=== PATIENT | male | born 1985 | race Caucasian/White ===

== ENCOUNTER → 2017-06-09 15:59 | Outpatient (CLI) | payer MEDICAID, SELFPAY ==
[2017-06-09 16:08] LABS: Bacteria 0 SEEN /hpf (None Seen); Mucous, Urine 0 SEEN /hpf (<or=2+); Red Blood Cells-Urine 0 SEEN /hpf (0-5); White Blood Cells 0 SEEN /hpf (0-5)
[2017-06-09 18:05] LABS: Color, Urine Yellow (Yellow); Glucose, Dipstick Normal (Normal); Ketone-Dipstick Negative (Negative); Leukocyte Esterase-Dipstick Negative /ul (Negative); Nitrite-Dipstick Negative (Negative); Occult Blood-Urine Negative /ul (Negative); Protein-Dipstick Negative (Negative); Specific Gravity, Urine 1.025 (1.002-1.030); Urine Bilirubin Dipstick Negative (Negative); Urine Clarity Clear (Clear); Urine Urobilinogen Normal (Normal)
[2017-06-09 18:40] LABS: Squamous Epithelial Cells - UA 0-5 SEEN /hpf (0-5)
[2017-06-09 20:09] LABS: Chlamydia Trachomatis by PCR Negative (Negative); Neisserai gonorrhoeae by PCR Negative (Negative); Probe Check PASS; Sample Adequacy Control PASS; Specimen Processing Control PASS
== END ==
PROVIDERS: Family Provider Family Medicine; PCP Family Medicine; Visit Provider Family Medicine
DX: N45.1 Epididymitis (principal); Z86.19 Personal history of other infectious and parasitic diseases
CPT/HCPCS: 81001; 87086; 87491; 87591

== ENCOUNTER → 2017-07-12 15:49 | Outpatient (CLI) | payer MEDICAID, SELFPAY ==
--- NOTE | 2017-07-12 15:52 | US_ITS ---
STUDY: SCROTUM ULTRASOUND REASON FOR EXAM: Male, 31 years old. Bilateral testicular pain and swelling. TECHNIQUE: Ultrasound evaluation of the scrotum was performed with color Doppler and static garcia-scale imaging. COMPARISON: None. FINDINGS: RIGHT TESTICLE INTRATESTICULAR: There is a normal size of the right testicle. The right testicle measures 3.8 x 3.0 x 2.4 cm. There is a homogenous echotexture. There is normal arterial and normal venous vascularity. There is no demonstrated right testicular mass or cyst. EXTRATESTICULAR: The epididymis is normal in size. The epididymis head measures 1.4 x 1.2 x 1.1 cm. There is normal vascularity of the epididymis. There is no demonstrated epididymal cystic structure. There is no demonstrated hydrocele. There is no demonstrated varicocele. There is no demonstrated extratesticular mass or cyst. LEFT TESTICLE INTRATESTICULAR: There is a normal size of the left testicle. The left testicle measures 3.9 x 2.7 x 2.3 cm. There is a homogenous echotexture. There is normal arterial and normal venous vascularity. There is no demonstrated left testicular mass or cyst. EXTRATESTICULAR: The epididymis is normal in size. The epididymis head measures 1.0 x 0.8 x 0.7 cm. There is normal vascularity of the epididymis. There is no demonstrated epididymal cystic structure. There is no demonstrated hydrocele. There is a small varicocele. There is no demonstrated extratesticular mass or cyst. US/Testicular with Arterial Flow IMPRESSION: Normal bilateral testicles. Right epididymal head is slightly larger as compared to the left. No increased vascularity to suggest epididymitis. Small left varicocele. Electronically Signed: Skip Zaldivar MD at 5:12 EDT , Service support ,
== END ==
PROVIDERS: Family Provider Family Medicine; PCP Family Medicine; Visit Provider Family Medicine
DX: N45.1 Epididymitis (principal)
CPT/HCPCS: 76870; 93976

== ENCOUNTER 2018-10-22 16:23 | Emergency (ER) | payer MEDICAID, SELFPAY ==
[2018-10-22 16:24] VITALS: BP 147/75; PULSE 60; RESP 14; TEMP 36.9; O2SAT 99; BMI 27.3
--- NOTE | 2018-10-22 16:36 | ED.VISSUMM ---
- ER Visit Summary Date of Service: 10/22/18 Chief Complaint: Left lower back pain History of Present Illness: The patient is a 33 M who complains of left lower back pain. He has had this pain for years but came in today because it is being unbearable today. The pain is in the left lower part of his back. Radiates down the left leg. Denies any falls or trauma. No specific injury. Pain is worse with ambulation. It does radiate down the posterior left leg. He has tried ibuprofen without any relief. He does have a PCP but has not mentioned this pain to his doctor. Physical Examination: Vital signs are reviewed. Back exam reveals tenderness in the left lumbar paraspinal area. It is tender down into the left buttock. His neurologic exam including reflexes is normal. No skin changes. Test Results: None performed Emergency Department Course and Treatment: Patient likely has a sciatica component to his pain. Treat him with naproxen and prednisone. He will need to follow-up with his PCP Treatment Plan: [] Disposition: Discharge Impression: Sciatica This note was generated with Glowpoint dictation software. It may contain incorrect words, spelling, and punctuation that were not noted in review of the chart prior to signing ED Disposition - Plan for ED Patient: Referrals: Oni Chun MD [Primary Care Provider] -
--- NOTE | 2018-10-22 16:37 | ED.DEP ---
ED Disposition - Plan for ED Patient: Disposition: Home or Assisted Living Instructions: BACK PAIN w/ SCIATICA Prescriptions: Prednisone [Deltasone] 40 mg PO DAILY #8 tab Prescription Printed Naproxen [Naprosyn] 500 mg PO BID PRN #20 tab Prescription Printed Referrals: Oni Chun MD [Primary Care Provider] -
[2018-10-22] MEDS: Naproxen 500 MG Tablet PO (16:46)
[2018-10-22] MEDS: predniSONE 20 MG Tablet 40 MG PO (16:46)
[2018-10-22 16:51] VITALS: RESP 18
== END 2018-10-22 16:53 | disposition home or self-care (01) ==
LOC: ED 16:49
PROVIDERS: Emergency Provider Emergency Medicine; Family Provider Family Medicine; PCP Family Medicine
DX: M54.42 Lumbago with sciatica, left side (principal); Z72.0 Tobacco use
CPT/HCPCS: 99283

== ENCOUNTER → 2018-10-25 14:17 | Outpatient (CLI) | payer MEDICAID, SELFPAY ==
[2018-10-22 16:24] VITALS: BMI 27.3
--- NOTE | 2018-10-25 14:22 | RAD_ITS ---
STUDY: X-RAY - LUMBAR SPINE REASON FOR EXAM: Male, 33 years old. Chronic low back pain TECHNIQUE: 5 view(s) of the lumbar spine were obtained. COMPARISON: None FINDINGS: There is no evidence of fracture or dislocation in the lumbar spine. The vertebral body heights are well-maintained. There are mild degenerative changes at L5/S1 with disc space narrowing. RAD/L/S Spine Min 4 Views IMPRESSION: No fracture or dislocation in the lumbar spine. Mild degenerative changes at L5/S1 with disc space narrowing. Electronically Signed: Jose L Flores, at 15:07 EDT Tel , Service support ,
== END ==
PROVIDERS: Family Provider Family Medicine; PCP Family Medicine; Referring Provider Family Medicine; Visit Provider Family Medicine
DX: M54.5 Low back pain (principal); G89.29 Other chronic pain
CPT/HCPCS: 72110

== ENCOUNTER → 2019-10-02 12:00 | Outpatient (CLI) | payer MEDICAID, SELFPAY ==
--- NOTE | 2019-10-02 12:04 | RAD_ITS ---
STUDY: X-RAY - ABDOMEN/PELVIS REASON FOR EXAM: Male, 33 years old. Abdominal pain TECHNIQUE: AP supine and upright views of the abdomen and pelvis on 4 images. COMPARISON: None. FINDINGS: Normal visualized lung bases. There is a generally unremarkable pattern of gas in nondistended segments of small bowel and colon. There is borderline to mild mural thickening of a gas-filled small bowel loop in the medial right lower quadrant, however, that could raise concern of local enteritis. There is no demonstrated free abdominal air. The visualized liver, spleen and kidneys are grossly normal in size and morphology. There are calcified phleboliths in the pelvis. Normal visualized osseous structures. RAD/Abd Inc Decub and/or Erect IMPRESSION: Possible local enteritis in the medial right lower quadrant. No sign of bowel obstruction. No free gas. Electronically Signed: Jaime Toney MD at 17:00 EDT , Service support ,
[2019-10-02 15:22] LABS: Absolute Lymphocyte Count 2.14 X10^3/uL (0.83-4.51); Absolute Neutrophil Count 3.6 X10^3/uL (2.0-7.7); Basophil# 0.07 X10^3/uL; Eosinophil# 0.28 X10^3/uL; Eosinophils% 4.2 % (0-5); Hematocrit 45.1 % (40-54); Hemoglobin 15.1 g/dL (13.0-16.5); Lymphocyte # 2.14 X10^3/ul (4.0); Mean Corp Hgb Conc 33.5 g/dL (32-36); Mean Corpuscular Hgb 30.4 pg (27.0-32.0); Mean Corpuscular Volume 90.9 fL (80-94); Mean Platelet Vol. 12.5 fl (6.2-12.0); Monocyte# 0.62 X10^3/uL; Monocyte% 9.3 % (0-10); NRBC Flagged by Analyzer 0 % (0-5); Neutrophil # 3.56 X10^3/uL (2.7-7.7); Neutrophil % 53.2 % (47-70); Platelet Count 249 K/mm3 (150-450); RBC Distribution Width CV 12.6 % (11.6-14.6); RBC Distribution Width SD 42.2 fl (35.1-43.9); Red Blood Count 4.96 M/mm3 (4.6-6.2); White Blood Count 6.7 K/mm3 (4.4-11.0)
[2019-10-02 15:23] LABS: Erythrocyte Sedimentation Rate 7 mm/hr (0-15)
[2019-10-02 15:45] LABS: ALB/GLOB Ratio 1.1 RATIO (0.9-2.4); AST(SGOT) 23 U/L (15-37); Alanine Aminotransfer ALT/SGPT 35 U/L (16-61); Albumin, Serum 4.2 g/dL (3.2-5.0); Alkaline Phosphatase 81 U/L (45-117); Amylase 76 U/L (25-115); Anion Gap 6 (5-15); BUN 14 mg/dL (7-18); BUN/Creat Ratio 13.5 RATIO (10-20); Calcium,Total 9.2 mg/dL (8.5-10.1); Chloride 104 mmol/L (98-107); Creatinine, Serum 1.04 mg/dL (0.70-1.30); EST Glomerular Filtration Rate 86 mL/min (>60); Est Glom Filt Rate - Afr Amer 104 mL/min (>60); Globulin 3.9 g/dL (2.2-4.2); Glucose 101 mg/dL (74-106); Lipase 297 U/L (73-393); Protein, Total 8.1 g/dL (6.4-8.2); Sodium Level 137 mmol/L (136-145)
== END ==
PROVIDERS: PCP Family Medicine; Referring Provider Family Medicine; Visit Provider Family Medicine
DX: R10.9 Unspecified abdominal pain (principal)
CPT/HCPCS: 36415; 74019; 80053; 82150; 83690; 85025; 85652

== ENCOUNTER → 2019-10-12 11:26 | Outpatient (CLI) | payer MEDICAID, SELFPAY ==
--- NOTE | 2019-10-12 11:33 | RAD_ITS ---
STUDY: X-RAY - ABDOMEN/PELVIS REASON FOR EXAM: Male, 33 years old. CHRONIC ABDOMINAL PAIN xFEW YEARS, WORSENING OVER LAST FEW WEEKS TECHNIQUE: 5 AP supine and upright views of the abdomen and pelvis. COMPARISON: None. FINDINGS: Normal visualized lung bases. There is an unremarkable bowel gas pattern. There is no demonstrated free abdominal air. The visualized liver, spleen and kidneys are grossly normal in size and morphology. Normal soft tissue structures. Normal visualized osseous structures. IMPRESSION: Normal x-ray examination of the abdomen and pelvis. STUDY: X-RAY - ACUTE ABDOMINAL SERIES REASON FOR EXAM: Male, 33 years old. CHRONIC ABDOMINAL PAIN xFEW YEARS, WORSENING OVER LAST FEW WEEKS TECHNIQUE: 2 frontal views of the chest. 3 Supine, and erect view(s) of the abdomen were obtained. COMPARISON: Abdominal x-ray dated October 02, 2019 FINDINGS: The lungs are clear and expanded. Normal size heart. Normal mediastinum and florentino. Normal visualized pulmonary arteries. Normal visualized aortic arch and descending thoracic aorta. The ascending and transverse colon are filled with stool. The descending colon appears mostly decompressed although a small amount of stool is seen in the sigmoid colon region. Mild gaseous distended small bowel loops with air-fluid levels central abdomen is likely due to ileus or enteritis. The soft tissue structures of the abdomen and pelvis are unremarkable. Normal visualized osseous structures. RAD/Acute Abdomen Inc Chest IMPRESSION: 1. Mild gaseous distended small bowel loops with air-fluid levels central abdomen is likely due to ileus or enteritis 2. The ascending and transverse colon are filled with stool. The descending colon appears mostly decompressed although a small amount of stool is seen in the sigmoid colon region. 3. Normal chest exam. Electronically Signed: Michael Thomas MD at 17:24 EDT , Service support ,
== END ==
PROVIDERS: PCP Family Medicine; Referring Provider Family Medicine; Visit Provider Family Medicine
DX: R10.9 Unspecified abdominal pain (principal)
CPT/HCPCS: 74019; 74022

== ENCOUNTER 2020-01-05 06:45 | Day surgery (SDC) | payer MEDICAID, SELFPAY ==
[2019-12-04 15:04] VITALS: BMI 27.3
[2020-01-05 06:59] VITALS: BP 138/77; PULSE 55; RESP 16; TEMP 36.7; O2SAT 98; BMI 25.0
[2020-01-05] MEDS: Lactated Ringers 1,000 ML 100 ML IV (07:05)
--- NOTE | 2020-01-05 07:11 | HP.PCM_ITS ---
Problem List (1) Change in bowel habit Status: Acute (2) Nausea Status: Acute (3) Abdominal pain Status: Acute Qualifiers: History and Physical Date of Admission: 01/05/20 Intake Visit Reasons: ABDOMINAL PAIN, DYSPESIA Chief Complaint: abd pain, constipation/diarrhea Water Tender Required: No Is patient in pain?: No Allergies hydrocodone bitartrate [From Vicodin] Allergy (Verified 12/04/19 15:03) Hives Medications Naproxen [Naprosyn] 500 mg PO BID PRN #20 tab 10/22/18 [Rx Confirmed 12/04/19] omeprazole 40 mg capsule,delayed release cap PO 12/04/19 [History Confirmed 12/04/19] [facility] Medical History (Updated 12/04/19 @ 15:[address] Manny Callejas MD) Change in bowel habit (Acute) Nausea (Acute) Abdominal pain (Acute) GERD (gastroesophageal reflux disease) (Acute) History of back problems (Acute) Surgical History (Updated 12/04/19 @ 15:00 by Umu Peters) History of tooth extraction (Acute) History of vasectomy (Acute) Family History (Updated 12/04/19 @ 15:02 by Umu Peters) Father Colon cancer Social History (Updated 12/04/19 @ 15:[address] Manny Callejas MD) Smoking Status: Current every day smoker HPI HPI HPI: JANIS TOBIN, is a 34 M who presents to the office today for surgical consultation regarding abdominal pain nausea diarrhea constipation. The patient is referred by his primary care physician Dr Oni Chun written copy my surgical consult recommendations return to him. 34-year-old gentleman. He claims for a couple years he has had problems with postprandial nausea abdominal pain diarrhea cramping. Etiology is not been clear but his symptoms have escalated in nature. On October 02, 2019 at [facility] showed a white count of 6.7 with a hemoglobin 15.1 hematocrit 45.1 platelet count 247,000. BUN was 14 creatinine 1.01. Liver function tests were normal. Amylase lipase normal. He had abdominal x-rays obtained most recently on October 12, 2019. The ascending and transverse colon were filled with stool. The descending colon appeared mostly decompressed. Gas-filled distended small bowel loops possible enteritis. The patient has not noticed any bright red blood per rectum or melena. He had had previous abdominal x-rays on October 02, 2019 showing possible local enteritis in the medial right lower quadrant no signs of obstruction. He has no family history of Crohn's or ulcerative colitis. His father had colon cancer in his early 40s. The patient has not had any previous upper and lower endoscopy. He is not had any history of gallbladder disease. He denies weight loss. He has been a long-term cigarette smoker since age 7 currently he uses a vaping product. When the nausea is severe he will use marijuana HPI HPI HPI: JANIS TOBIN, is a 34 M who presents to the office today for ROS General General: No weight change, appetite, fatigue, colon cancer, breast cancer or weakness HEENT HEENT: No difficulty swallowing, eye injury, eye surgery, swollen glands or hoarseness Endo Endocrine: No thyroid disease, diabetes mellitus, thyroid cancer, Hair loss, heat intolerance or cold intolerance Musc Musculoskeletal: Yes back problems; no arthritis, rheumatoid arthritis, gout or joint pain Cardio Cardiovascular: No murmur, pacemaker, heart disease, atrial fibrillation, high blood pressure, heart attack, heart stent, palpitations, shortness of breat with exertion or chest pain Psych Psychiatric: No depression, anxiety or hearing voices Resp Respiratory: No shortness of breath, No sleep apnea, No cough, No COPD, No asthma, No emphysema, No wheezing Gastro Gastrointestinal: Yes abdominal pain, Yes nausea or vomiting, Yes diarrhea, Yes constipation, No blood in stool, No acid reflux, No hemorrhoids, No ulcers, No gallbladder problem, No black,tarry stools Richy Hematologic: No blood thinners, No blood disorders, No bleeding, No anemia, No blood clots Neuro Neurologic: No weakness Exam Const General: cooperative Nutritional Appearance: overweight Orientation: alert, awake [facility] Head: normal to inspection Eyes General: appearance normal, both eyes and all related structures Chest Chest palpation & inspection: normal inspection of the chest Resp Effort & Inspection: normal respiratory effort Auscultation: clear to auscultation bilaterally Cardio Rate: regular rate Rhythm: regular rhythm Heart Sounds: no murmurs GI Other: Soft, diminished nonspecific bowel sounds, minimal tenderness palpation right mid abdomen, no mass, no rebound, no guarding, rectal exam deferred to time of endoscopy Musc Cervical Spine: normal cervical lordosis Skin General: no rashes or lesions noted Neuro Cognition: normal cognition Extrem General: no calf tenderness Psych Affect: normal affect Assessment & Plan Problems 1. Generalized abdominal pain R10.84 2. Nausea R11.0 3. Change in bowel habit R19.4 Plan Patient's had abdominal x-rays suggesting possible decreased caliber of the descending colon with stool in the ascending and transverse. He has been placed on omeprazole with some improvement in reflux symptoms but failure to resolve his nausea. He has a family history of colon cancer in his father at age less than 50. CBC and complete metabolic profile were normal. Abdominal x-rays questioning possible enteritis but that was on 2 different images one in early October and one in later October. I recommended the patient a esophagogastroduodenoscopy with possible biopsy and colonoscopy with possible biopsy or polypectomy as indicated. I have discussed technique, benefit, risk and alternatives. He has had an opportunity to ask and have questions answered. I anticipate aggressive inspection and biopsying were indicated. I anticipate random colonic biopsies. If that is not remarkable then might pursue gallbladder ultrasound or additional gallbladder evaluation. The patient may have irritable bowel syndrome but need to exclude other etiology. I appreciate the opportunity of assisting with her surgical care He is aware of the Covid-19 pandemic. He is aware that the [facility] is currently reporting a low local incidence. CC: Dr Oni Callejas M.D., F.A.C.S. Coding Level of Care Code 27139 Diagnoses Generalized abdominal pain R10.84 ??Abdominal location: generalized Nausea R11.0 Change in bowel habit R19.4 I have re-examined the patient. There are no clinical changes since date of exam. Procedure Criteria Procedure Type: Elective COVID Risk Discussion: The surgeon/proceduralist and patient have discussed in detail the risk of exposure to and/or potential harm posed by the COVID-19 virus with having a surgery/procedure at this time versus the risk of delaying the surgery/procedure. It is not possible to know either the risk of delaying the surgery or procedure or chance of getting an infection with perfect accuracy, but a joint decision was made between the patient and the surgeon/proceduralist to proceed at this time with the scheduled surgery/procedure as indicated on the consent form.
--- NOTE | 2020-01-05 07:30 | IMM_PTH ---
PATIENT: JANIS TOBIN LOC: [facility] U#:[id number] AGE/SX: 34/M ROOM: RE01/05/[address]: Dr. Manny Callejas MD : 1985 BED: DIS: 01/05/2020 SPEC #: [id number] RECD: 01/05/20 13:20 STATUS: CECI REColleen #: [id number] PUJA: 01/05/20 07:[address]: Manny Callejas DEPT: IMMUNOHISTOCHEMISTRY RECD BY: Tania Fowler ENTERED: 01/05/20 13:20 SP TYPE: IMMUNO OTHR DR: Dr. Oni Chun MD Tissues: B - Stomach, NOS Procedures: H Pylori (initial) PHYSICIAN & INSTITUTION [place] [address] SPECIMEN INFORMATION: Tissue Source: B - Antrum biopsy Clinical Info: Abdominal pain, change in bowel habits, nausea Specimen Number: [id number] CPT code: 21603 METHODOLOGY: Deparaffinized sections of prefer/formalin-fixed tissue or PAP/DQ stained slides are incubated with monoclonal/polyclonal antibodies/oligonucleotide probes. Localization is made via biotin free immunoperoxidase method. Appropriate controls are performed and reacted as expected. Results on target cell population are indicated in the following table: RESULTS: ANTIBODY / CLONE RESULT Block B H Pylori (polyclonal) negative These tests were developed and their performance characteristics determined by [facility]. They may not have been cleared or approved by the U.S. Food and Drug Administration. The FDA has determined that such clearance or approval is not necessary. INTERPRETATION: B. Antrum biopsy: Negative for Helicobacter pylori organisms. SJ:nicolette 01/09/20
--- NOTE | 2020-01-05 07:30 | EGD_PTH ---
PATIENT: JANIS TOBIN LOC: [facility] U#:[id number] AGE/SX: 34/M ROOM: RE01/05/[address]: Dr. Manny Callejas MD : 1985 BED: DIS: 01/05/2020 SPEC #: [id number] RECD: 01/05/20 12:05 STATUS: CECI BHAVANA #: [id number] PUJA: 01/05/20 07:[address]: Manny Callejas DEPT: SURGICAL PATHOLOGY RECD BY: Devaughn Flowers ENTERED: 01/05/20 13:06 SP TYPE: EGD BIOPSY OT DR: Dr. Oni Chun MD Tissues: A - Duodenum, NOS B - Gastric mucous membrane C - Esophageal mucous membrane D - Esophageal mucous membrane E - COLON BIOPSY Procedures: Surgery Specimen Level IV HEADER OPERATION: Colonoscopy, EGD ([facility]) PRE-OP DIAGNOSIS: Abdominal pain, change in bowel habits, nausea TISSUE SUBMITTED: A - Duodenum biopsy, B - Antrum biopsy for histo and H. pylori, C - Distal esophagus biopsy, D - Mid esophagus biopsy, E - Random colonic biopsy MICROSCOPIC DIAGNOSIS A. Duodenum, biopsy: Fragments of duodenal mucosa with Cody gland hyperplasia. B. Antrum, biopsy: Mild gastritis. See microscopic description and comment. C. Distal esophagus, biopsy: Fragments of squamous epithelium with mild chronic inflammation. D. Mid esophagus, biopsy: A fragments of squamous epithelium, no pathologic diagnosis. E. Colon, random biopsy: Fragments of colonic mucosa, no pathologic diagnosis. SJ:nicolette 01/09/20 COMMENT B. The results of immunohistochemistry for Helicobacter pylori will be reported separately ([id number]). MICROSCOPIC DESCRIPTION Slides are reviewed. B. The specimen shows fragments of gastric mucosa with chronic inflammatory cell infiltrates in the lamina propria consisting of lymphocytes and plasma cells, consistent with mild chronic gastritis. GROSS DESCRIPTION A - Received in fixative is one container labeled with the patient's name and designated duodenum biopsy. The specimen consists of two irregular fragments of light caldera soft tissue that in aggregate measure 0.8 x 0.4 x 0.1 cm. The specimen is totally submitted in one cassette. B - Received in fixative is one container labeled with the patient's name and designated antrum biopsy. The specimen consists of one irregular fragment of light caldera soft tissue that measures 0.3 x 0.3 x 0.1 cm. The specimen is totally submitted in one cassette. C - Received in fixative is one container labeled with the patient's name and designated distal esophagus biopsy. The specimen consists of multiple irregular fragments of light caldera soft tissue that in aggregate measure 1 x 0.5 x 0.1 cm. The specimen is totally submitted in one cassette. D - Received in fixative is one container labeled with the patient's name and designated mid esophagus biopsy. The specimen consists of one irregular fragment of light caldera soft tissue that measures 0.3 x 0.2 x 0.1 cm. The specimen is totally submitted in one cassette. E - Received in fixative is one container labeled with the patient's name and designated random colonic biopsy. The specimen consists of multiple irregular fragments of light caldera soft tissue that in aggregate measure 1.5 x 1 x 0.1 cm. The specimen is totally submitted in one cassette. / SJ:rg 01/05/20 TC:3 CPT: 89584 x5
[2020-01-05 08:15] VITALS: BP 104/66; BP 138/77; PULSE 47; RESP 18; TEMP 36.2; O2SAT 99
--- NOTE | 2020-01-05 08:18 | OP.CCLET_ITS ---
01/05/2020 Oni Chun [address] [place] [address] Re : Upper GI endoscopy procedure for Chris Mccann Dear Dr. Chun This procedure was performed on Sunday, January 05, 2020. My impressions and recommendations are as follows: Impressions : - LA Grade A reflux esophagitis. Biopsied. - Small hiatal hernia. - Z-line variable, 42 cm from the incisors. - Erythematous mucosa in the antrum. Biopsied. - Normal mid esophagus. Biopsied. - Normal examined duodenum. Biopsied. Recommendations : - Discharge patient to home. - Resume previous diet. - Continue present medications. - Telephone my office for pathology results in 1 week. None of these findings correlate with significant abdominal pain Might consider further outpt workup with GB U/S or HIDA My findings are described in the full procedure note, which is enclosed. If I can be of further assistance, please feel free to contact me at Doctor phone number(s): Work: . Sincerely, Manny Callejas MD 01/05/2020 8:18:11 AM This report has been signed electronically.
--- NOTE | 2020-01-05 08:18 | OP.EGD_ITS ---
Patient Name: Chris Mccann Procedure Date: 01/05/2020 7:46 AM Date of : 1985 Age: 34 Procedure: Upper GI endoscopy Indications: Epigastric abdominal pain Providers: Manny Callejas MD Referring MD: Oni Chun Medicines: See the Anesthesia note for documentation of the administered medications Complications: No immediate complications. Procedure: Pre-Anesthesia Assessment: - Prior to the procedure, a History and Physical was performed, and patient medications and allergies were reviewed. The patient's tolerance of previous anesthesia was also reviewed. The risks and benefits of the procedure and the sedation options and risks were discussed with the patient. All questions were answered, and informed consent was obtained. Prior Anticoagulants: The patient has taken no previous anticoagulant or antiplatelet agents. ASA Grade Assessment: I - A normal, healthy patient. After reviewing the risks and benefits, the patient was deemed in satisfactory condition to undergo the procedure. After obtaining informed consent, the endoscope was passed under direct vision. Throughout the procedure, the patient's blood pressure, pulse, and oxygen saturations were monitored continuously. The Endoscope was introduced through the mouth, and advanced to the second part of duodenum. The upper GI endoscopy was accomplished without difficulty. The patient tolerated the procedure well. Scope In: 7:56:12 AM Scope Out: 8:02:15 AM Total Procedure Duration Time 0 hours 6 minutes 3 seconds Findings: LA Grade A (one or more mucosal breaks less than 5 mm, not extending between tops of 2 mucosal folds) esophagitis with no bleeding was found 42 cm from the incisors. Biopsies were taken with a cold forceps for histology. A small hiatal hernia was present. The Z-line was variable and was found 42 cm from the incisors. Diffuse mildly erythematous mucosa without bleeding was found in the gastric antrum. Biopsies were taken with a cold forceps for histology. The mid esophagus was normal. Biopsies were taken with a cold forceps for histology. The examined duodenum was normal. Biopsies were taken with a cold forceps for histology. Impression: - LA Grade A reflux esophagitis. Biopsied. - Small hiatal hernia. - Z-line variable, 42 cm from the incisors. - Erythematous mucosa in the antrum. Biopsied. - Normal mid esophagus. Biopsied. - Normal examined duodenum. Biopsied. Recommendation: - Discharge patient to home. - Resume previous diet. - Continue present medications. - Telephone my office for pathology results in 1 week. None of these findings correlate with significant abdominal pain Might consider further outpt workup with GB U/S or HIDA Procedure Code(s): --- Professional --- 65568, Esophagogastroduodenoscopy, flexible, transoral; with biopsy, single or multiple Diagnosis Code(s): --- Professional --- K21.0, Gastro-esophageal reflux disease with esophagitis K44.9, Diaphragmatic hernia without obstruction or gangrene K22.8, Other specified diseases of esophagus K31.89, Other diseases of stomach and duodenum R10.13, Epigastric pain CPT copyright 2017 [employer]. All rights reserved. The codes documented in this report are preliminary and upon cottage attendant review may be revised to meet current compliance requirements. Manny Callejas MD 01/05/2020 8:18:11 AM This report has been signed electronically. Number of Addenda: 0 Note Initiated On: 01/05/2020 7:46 AM
[2020-01-05 08:20] VITALS: BP 122/57; BP 138/77; PULSE 57; RESP 18; O2SAT 99
--- NOTE | 2020-01-05 08:21 | OP.COLON_ITS ---
Patient Name: Chris Mccann Procedure Date: 01/05/2020 8:02 AM Date of : 1985 Age: 34 Procedure: Colonoscopy Indications: Generalized abdominal pain Providers: Manny Callejas MD Referring MD: Oni Chun Medicines: See the Anesthesia note for documentation of the administered medications Patient Profile: Last Colonoscopy: none. The patient's first colonoscopy is today. Complications: No immediate complications. Procedure: Pre-Anesthesia Assessment: - Prior to the procedure, a History and Physical was performed, and patient medications and allergies were reviewed. The patient's tolerance of previous anesthesia was also reviewed. The risks and benefits of the procedure and the sedation options and risks were discussed with the patient. All questions were answered, and informed consent was obtained. Prior Anticoagulants: The patient has taken no previous anticoagulant or antiplatelet agents. ASA Grade Assessment: I - A normal, healthy patient. After reviewing the risks and benefits, the patient was deemed in satisfactory condition to undergo the procedure. After I obtained informed consent, the scope was passed under direct vision. Throughout the procedure, the patient's blood pressure, pulse, and oxygen saturations were monitored continuously. The Colonoscope was introduced through the anus and advanced to the cecum, identified by appendiceal orifice and ileocecal valve. The colonoscopy was performed without difficulty. The patient tolerated the procedure well. The quality of the bowel preparation was good. The ileocecal valve and the appendiceal orifice were photographed. Scope In: 8:04:02 AM Scope Withdrawal Time 0 hours 6 minutes 24 seconds Scope Out: 8:12:55 AM Total Procedure Duration Time 0 hours 8 minutes 53 seconds Findings: The perianal and digital rectal examinations were normal. The colon (entire examined portion) appeared normal. Biopsies for histology were taken with a cold forceps from the entire colon for evaluation of microscopic colitis. Impression: - The entire examined colon is normal. Biopsied. Recommendation: - Discharge patient to home. - Resume previous diet. - Continue present medications. - Telephone my office for pathology results in 1 week. - Repeat colonoscopy at age 48 for screening purposes. Procedure Code(s): --- Professional --- 35754, Colonoscopy, flexible; with biopsy, single or multiple Diagnosis Code(s): --- Professional --- R10.84, Generalized abdominal pain CPT copyright 2017 [employer]. All rights reserved. The codes documented in this report are preliminary and upon personal security specialist review may be revised to meet current compliance requirements. Manny Callejas MD 01/05/2020 8:21:27 AM This report has been signed electronically. Number of Addenda: 0 Note Initiated On: 01/05/2020 8:02 AM
--- NOTE | 2020-01-05 08:21 | OP.CCLET_ITS ---
01/05/2020 Oni Chun [address] [place] [address] Re : Colonoscopy procedure for Chris Mccann Dear Dr. Chun This procedure was performed on Sunday, January 05, 2020. My impressions and recommendations are as follows: Impressions : - The entire examined colon is normal. Biopsied. Recommendations : - Discharge patient to home. - Resume previous diet. - Continue present medications. - Telephone my office for pathology results in 1 week. - Repeat colonoscopy at age 48 for screening purposes. My findings are described in the full procedure note, which is enclosed. If I can be of further assistance, please feel free to contact me at Doctor phone number(s): Work: . Sincerely, Manny Callejas MD 01/05/2020 8:21:27 AM This report has been signed electronically.
[2020-01-05 08:25] VITALS: BP 116/68; BP 138/77; PULSE 56; RESP 18; O2SAT 99
[2020-01-05 08:30] VITALS: BP 122/83; BP 134/85; BP 138/77; PULSE 56; PULSE 58; RESP 16; RESP 18; TEMP 36.1; O2SAT 98; O2SAT 99
[2020-01-05 09:10] VITALS: BP 138/77
== END 2020-01-05 09:10 | disposition home or self-care (01) ==
LOC: EN 06:45 → AC 06:46
PROVIDERS: Anesthesiology; PCP Family Medicine; Referring Provider Family Medicine; Visit Provider Surgery
PROC: 0DJD8ZZ Inspection of Lower Intestinal Tract, Via Natural or Artificial Opening Endoscopic (ICD-10-PCS; CPT 45378; principal; 2020-01-05 07:25)
DX: K21.0 Gastro-esophageal reflux disease with esophagitis (principal); K29.70 Gastritis, unspecified, without bleeding; K44.9 Diaphragmatic hernia without obstruction or gangrene; R10.84 Generalized abdominal pain; R10.13 Epigastric pain; R19.4 Change in bowel habit; R11.0 Nausea; E66.3 Overweight; Z68.25 Body mass index [BMI] 25.0-25.9, adult; F17.290 Nicotine dependence, other tobacco product, uncomplicated; Z79.1 Long term (current) use of non-steroidal anti-inflammatories (NSAID); Z11.59 Encounter for screening for other viral diseases; Z80.0 Family history of malignant neoplasm of digestive organs
CPT/HCPCS: 43239; 45380; 87635; 88305; 88342; 94799; J7120; J2405; U0003

== ENCOUNTER → 2020-01-24 07:52 | Outpatient (CLI) | payer MEDICAID, SELFPAY ==
[2020-01-05 06:59] VITALS: BMI 25.0
--- NOTE | 2020-01-24 07:52 | US_ITS ---
STUDY: ABDOMINAL ULTRASOUND - RIGHT UPPER QUADRANT REASON FOR VISIT: Male, 34 years old ABD Pain TECHNIQUE: Ultrasound evaluation of the right upper quadrant was performed with real-time and static garcia-scale imaging. TECHNICAL QUALITY: Adequate. COMPARISON: None. FINDINGS: Liver: The liver measures 17 cm. There is normal echogenicity of the liver. The bile ducts are within normal limits. There is hepatic color flow. The direction of portal flow is hepatopetal. There is no demonstrated mass lesion. Gallbladder: Normal distended gallbladder. The gallbladder wall measures 3.0 mm. There is a negative sonographic Espinosa''s sign. There is no pericholecystic fluid. There are no gallstones. Common Bile Duct (C.B.D.): The common bile duct measures 3.0 mm. Pancreas: Normal size of the head, body and tail of the pancreas. There is normal echogenicity of the pancreas. There is no demonstrated pancreatic mass or cyst. Right Kidney: Normal size of the right kidney. The right kidney measures 12 cm x 5.4 cm x 4.9 cm. Normal renal cortex. The right cortex measures 1.6 cm. There is no demonstrated renal mass or cyst. There is no right hydronephrosis. US/Gallbladder IMPRESSION: Normal right upper quadrant ultrasound examination. Electronically Signed: Дмитрий Mendoza, at 11:14 EDT , Service support ,
== END ==
PROVIDERS: PCP Family Medicine; Referring Provider Surgery; Visit Provider Surgery
DX: R10.9 Unspecified abdominal pain (principal); R11.0 Nausea
CPT/HCPCS: 76705

== ENCOUNTER → 2020-12-09 13:00 | Outpatient (CLI) | payer MEDICAID, SELFPAY ==
--- NOTE | 2020-12-09 13:04 | RAD_ITS ---
STUDY: X-RAY - LUMBAR SPINE REASON FOR EXAM: Male, 35 years old. Lumbar radiculopathy. TECHNIQUE: 5 view(s) of the lumbar spine were obtained. COMPARISON: 10/25/2018. FINDINGS: Normal lumbar lordosis. There is no substantial scoliosis. There is a normal alignment of the vertebrae. Normal vertebral bodies and endplates. Diffuse facet sclerosis. Intervertebral disc space narrowing at L5-S1 with small osteophytes and endplate sclerosis, relatively unchanged from prior study. The soft tissue structures are unremarkable. RAD/L/S Spine Min 4 Views IMPRESSION: Mild lumbar spondylosis most marked at L5-S1, as described. No acute abnormality. Electronically Signed: Sebastian Boland MD at 9:21 EDT , Service support ,
== END ==
PROVIDERS: PCP Family Medicine; Referring Provider Chiropractor; Visit Provider Chiropractor
DX: M47.26 Other spondylosis with radiculopathy, lumbar region (principal)
CPT/HCPCS: 72110

== ENCOUNTER 2021-02-12 16:00 | Outpatient (RCR) | payer MEDICAID, SELFPAY ==
--- NOTE | 2020-12-30 18:02 | HP.PTEVAL ---
Patient's Visit Information JANIS TOBIN is a 35 year old M referred to Physical Therapy by Dr. Rk Antoine DC with a diagnosis of LUMBAR RADICULOAPTHY. Date of Evaluation: 12/30/20 Physical Therapist: Fran Thomas, PT, Cert MDT, OCS - Visit Plan Frequency: 2x /Week Duration: 4 Weeks Plan: PT INTERVENTIONS JAY EX'S ,PROGESS TO DLS LE FLEXABILIY ,ACTIVITY MODIFICATION,POSTURAL EX'S AND MODALTIES PRN - Subjective This 35 y/o male presents to physical therapy with lumbar radiculopathy. Patient has had lumbar radiculopathy for ~ 2months . Patient inquired lumbar pain by tubing in river felt pinch. Seen chiropractor with manipulation which didn't help. Patient pain located left LS region lateral hamstring to ankle. Patient has sciatic pain in past ~ months lifting. Aggravating factors sitting, driving ,bending ,lifting and walking/standing. Coughing /sneezing-. Aleve alleviates pain. Bowel/bladder -. C/O paresthesia/tingling -. Pain affects sleeping . Patient pain affects job demands/QOL and function. No prior PT in past. SOCIAL: . VOCATION: WORKS - Pain Left Back Pain Intensity (Out of 10): 4 Pain Intensity Range: 10 Left Lower Extremity Pain Intensity (Out of 10): 4 Pain Intensity Range: 10 - Objective POSTURE: mild forward posture. GAIT: reciprocal pattern left antalgic gait. PALAPTION: tender LS. NEURO : c/o paresthesia/tingling, reflexes L3-4,L4-5,L5-S1 1/3. MMT: quads/hams 4-/5 left ,right 4/5,hip flexion 4/5,ankle 4/5. LUMBAR ROM: flexion mod pain left lower leg, extension WNL ,side glides min loss. SYMMTRIES: align - Special Tests L/S Slump test left side: Positive L/S Slump test right side: Negative L/S Left Straight Leg Raise: Positive L/S Right Straight Leg Raise: Negative Lumbar Standing: Flexion - Mechanical Response: No effect Lumbar Standing: Flexion - Symptoms During Testing: Increases Lumbar Standing: Flexion - Symptoms After Testing: Worse Lumbar Standing: Extension - Mechanical Response: No effect Lumbar Standing: Extension - Symptoms During Testing: Decreases Lumbar Standing: Extension - Symptoms After Testing: Better Lumbar Standing: Right Side Glides - Mechanical Response: No effect Lumbar Standing: Right Side [place] - Symptoms During Testing: No effect Lumbar Standing: Right Side [place] - Symptoms After Testing: No effect Lumbar Standing: Left Side [place] - Mechanical Response: No effect Lumbar Standing: Left Side [place] - Symptoms During Testing: No effect Lumbar Standing: Left Side [place] - Symptoms After Testing: No effect Lumbar Lying: Flexion - Mechanical Response: No effect Lumbar Lying: Flexion - Symptoms During Testing: Increases Lumbar Lying: Flexion - Symptoms After Testing: Worse Lumbar Lying: Extension - Mechanical Response: No effect Lumbar Lying: Extension - Symptoms During Testing: Decreases Lumbar Lying: Extension - Symptoms After Testing: Better - Balance/Special Test Scores Oswestry Low Back Score: 21 - Goals Goal 1:: I with HEP Goal Time Frame: 4-6 Weeks Goal 2:: Improve posture/body mechanics for ADL's Goal Time Frame: 4-6 Weeks Goal 3:: Patient to decrease pain by 60 % or > to improve function QOL. Goal Time Frame: 4-6 Weeks Goal 4:: Patient to improve lumbar ROM for function of recovery. Goal Time Frame: 4-6 Weeks Goal 5:: Patient increase strength Left LLE 4/5 and resolve ANR by 50% or > to improve QOL Goal Time Frame: 4-6 Weeks - Rehabilitation Potential Physical Therapy Diagnosis: This patient has left lumbar radiculopathy with possible derangement below knee with possible disc -HNP with + SLR ,/ANR ,pain with flexion ,better with extension ,worse with positioning thus benefit from skilled PT to address these deficits Rehabilitation Potential: Good - Anticipated Interventions Patient/Client Instruction: Educate patient on: Condition, Plan of Care For the Purpose of:: To decrease pain, To increase ROM, To improve muscle performance and motor function, To improve ability to perform ADL's, To increase tolerance to activity/condition/position, To improve performance and independence with ADL's, To improve ability of physical actions for home/community/work/leisure, To improve health of tissue, To decrease soft tissue restriction, To increase flexibility/ROM, To reduce risk of recurrence Therapeutic Exercise to Include: Strength training, Body mechanics, Postural training, Flexibilty training, Dynamic Lumbar Stabilization, Jay Exercises For the Purpose of:: To decrease pain, To increase ROM, To improve muscle performance and motor function, To improve ability to perform ADL's, To increase tolerance to activity/condition/position, To improve ability of physical actions for home/community/work/leisure, To improve health of tissue, To decrease soft tissue restriction, To increase flexibility/ROM, To reduce risk of recurrence, To improve ability to perform tasks related to life management TENS: Yes IF ES: Yes Cryotherapy (ice pack, ice massage): Yes Thermo therapy (hot pack): Yes For the Purpose of:: To decrease pain, To increase ROM, To improve muscle performance and motor function, To improve ability to perform ADL's, To increase tolerance to activity/condition/position, To improve ability of physical actions for home/community/work/leisure, To improve health of tissue, To decrease soft tissue restriction, To increase flexibility/ROM, To reduce risk of recurrence, To improve health and function Thank you for the opportunity to evaluate your patient. For Medicare and Medicare HMO plans, please review the plan of care and approve it. It will need to be FAXED BACK to us at [phone] for Medicare purposes. For Medicare only, by signing this I certify the plan of care. Please let me know if there are questions or concerns regarding this plan of care. Physician Signature: Date:
--- NOTE | 2021-02-26 09:24 | HP.PTDCSUM ---
It has been my pleasure to treat JANIS TOBIN referred by Dr. Rk Antoine, JONEL, with the diagnosis of LUMBAR RADICULOAPTHY for a total of 8 visit(s). Discharge Date: 02/26/21 Please see the following information for a summary of their discharge status. Subjective: Feeling alot better ,exercises seem to help. But conts to have intermtant leg symptoms Left Back Pain Intensity (Out of 10): 4 Left Lower Extremity Pain Intensity (Out of 10): 4 % Improvement: 50 Objective/Function: Pt CYNTHIA TX WELL WITH JAY AND DLS WITH NO INCREASE IN SYMPTOMS Goal 1:: I with HEP Goal Progress: Goal Met Goal 2:: Improve posture/body mechanics for ADL's Goal Progress: Progressing Goal 3:: Patient to decrease pain by 60 % or > to improve function QOL. Goal Progress: Progressing Goal 4:: Patient to improve lumbar ROM for function of recovery. Goal Progress: Progressing Goal 5:: Patient increase strength Left LLE 4/5 and resolve ANR by 50% or > to improve QOL Goal Progress: Progressing Plan: PT INTERVENTIONS JAY EX'S, PROGESS TO DLS LE FLEXABILIY, ACTIVITY MODIFICATION, POSTURAL EX'S AND MODALTIES PRN Discharge Comments: HEP AND RTD AND MRI If there are questions or concerns regarding this patient's physical therapy, please feel free to call me at [phone]. Thank you for the referral of this patient. Sincerely, Fran Thomas, PT, Cert MDT, OCS Balance/Gait/Functional tests - Balance/Special Test Scores Oswestry Low Back Score: 10
--- NOTE | 2021-02-26 09:32 | HP.PTDCSUM ---
It has been my pleasure to treat JANIS TOBIN referred by Dr. Rk Antoine DC, with the diagnosis of LUMBAR RADICULOAPTHY for a total of 8 visit(s). Discharge Date: 02/26/21 Please see the following information for a summary of their discharge status. Subjective: Feeling alot better ,exercises seem to help. But conts to have intermtant leg symptoms Left Back Pain Intensity (Out of 10): 4 Left Lower Extremity Pain Intensity (Out of 10): 4 % Improvement: 50 Objective/Function: POSTURE: WFL. GAIT: reciprocal pattern decrease stance time LLE. MMT: quads/hams 4-/5. LUMBAR ROM: flexion mod loss pain increases leg symptoms ,extension/REIL decrease leg symptoms better. NEURO: c/o paresthesia LEFT LEG, myotome weakness. + SLR ,ANR Goal 1:: I with HEP Goal Progress: Goal Met Goal 2:: Improve posture/body mechanics for ADL's Goal Progress: Progressing Goal 3:: Patient to decrease pain by 60 % or > to improve function QOL. Goal Progress: Progressing Goal 4:: Patient to improve lumbar ROM for function of recovery. Goal Progress: Progressing Goal 5:: Patient increase strength Left LLE 4/5 and resolve ANR by 50% or > to improve QOL Goal Progress: Progressing Plan: D/C RTD. RECOMMEND MRI Discharge Comments: HEP AND RTD AND MRI If there are questions or concerns regarding this patient's physical therapy, please feel free to call me at [phone]. Thank you for the referral of this patient. Sincerely, Fran Thomas, PT, Cert MDT, OCS Balance/Gait/Functional tests - Balance/Special Test Scores Oswestry Low Back Score: 10
== END 2021-02-12 19:00 | disposition home or self-care (01) ==
LOC: PT 16:00
PROVIDERS: PCP Family Medicine; Referring Provider Chiropractor; Visit Provider Chiropractor
DX: M54.16 Radiculopathy, lumbar region (principal)
CPT/HCPCS: 97014; 97110; 97161; G0283

== ENCOUNTER → 2021-03-20 15:46 | Outpatient (CLI) | payer MEDICAID, SELFPAY ==
--- NOTE | 2021-03-20 15:55 | MRI_ITS ---
STUDY: MRI LUMBAR SPINE WITHOUT CONTRAST REASON FOR EXAM: Male, 35 years old. RADICULOPATHY, lbp , left leg pain TECHNIQUE: Standardized fat and water weighted pulse sequences were obtained in the sagittal and axial planes. COMPARISON: X-ray 12/09/2020 FINDINGS: T12-L1: Normal endplates. Normal disc height, hydration and morphology. Normal bilateral facet joints. Normal central canal and bilateral lateral recesses. Normal bilateral intervertebral neural foramina. Normal lumbar lordosis. There is no substantial scoliosis. Normal conus medullaris that terminates at the L1. L1-2: Normal endplates. Normal disc height, hydration and morphology. Normal bilateral facet joints. Normal central canal and bilateral lateral recesses. Normal bilateral intervertebral neural foramina. L2-3: Normal endplates. Normal disc height, hydration and morphology. Normal bilateral facet joints. Normal central canal and bilateral lateral recesses. Normal bilateral intervertebral neural foramina. L3-4: Normal endplates. Normal disc height, hydration and morphology. Normal bilateral facet joints. Normal central canal and bilateral lateral recesses. Normal bilateral intervertebral neural foramina. L4-5: Moderate broad disc osteophyte complex asymmetric to the left produces moderate spinal stenosis with moderate right lateral recess stenosis with abutment of the right L5 nerve root, severe left lateral recess stenosis with effacement of the left L5 and S1 nerve roots and mild bilateral neural foraminal stenosis. L5-S1: Mild bilateral facet hypertrophy. Moderate broad disc osteophyte complex produces moderate spinal stenosis with moderate bilateral lateral recess stenosis with abutment of the S1 nerve roots bilaterally and moderate bilateral neural foraminal stenosis with abutment of the L5 nerve roots bilaterally. Normal visualized sacral ala. Normal visualized paraspinous soft tissue structures. MRI/Spine Lumbar (Routine) IMPRESSION: Multilevel degenerative changes, as described above. Electronically Signed: Benson Eng MD at 17:20 EST Tel , Service support ,
== END ==
PROVIDERS: PCP Family Medicine; Visit Provider Chiropractor
DX: M54.16 Radiculopathy, lumbar region (principal)
CPT/HCPCS: 72148

== ENCOUNTER 2024-01-07 08:25 | Day surgery (SDC) | payer OTHER, SELFPAY ==
[2024-01-07] VITALS (7 sets, daily range): BP systolic 99–122; BP diastolic 62–80; PULSE 60–65; RESP 14–16; TEMP 36.6–36.8; O2SAT 65–97; BMI 24.7
--- NOTE | 2024-01-07 09:11 | PCM.PRE.AN2 ---
ASA Classification* ASA Classification ASA Classification: 2 Assessment & Plan Anesthesia* Anesthesia Assessment Anesthesia Assessment: Discussed sedation and/or anesthesia options, risks, benefits, and alternatives with patient/parents/legal guardian/POA. Questions invited. The patient/parents/legal guardian/POA seems to understand and agrees to proceed with anesthesia plan. Reviewed the physical assessment, medical history, allergy history and patient home medications list prior to surgery/procedure/anesthetic and documented any changes. Performed airway and anesthesia risk assessments. Anesthesia Type Anesthesia Type: MAC History Source History Obtained from:: Patient and Chart Anesthesia Focused Assessment* Temperature: 98.3 F Pulse Rate: 60 Blood Pressure: 122/80 Respiratory Rate: 16 Pulse Ox: 97 Oxygen Delivery Method: Room Air Airway Assessment Mouth opens: >3 cm Mallampati Score: I Teeth Condition: Full (Patient has full dentures) Neck Range of motion (ROM): Full ROM Focused Labs Anesthesia Preop lab: CBC WBC 6.7 K/mm3 (4.4-11.0) 10/02/19 12:05 RBC 4.96 M/mm3 (4.6-6.2) 10/02/19 12:05 Hgb 15.1 g/dL (13.0-16.5) 10/02/19 12:05 Hct 45.1 % (40-54) 10/02/19 12:05 Plt Count 249 K/mm3 (150-450) 10/02/19 12:05 CHEMISTRY Potassium 4.0 mmol/L (3.5-5.1) 10/02/19 12:05 Sodium 137 mmol/L (136-145) 10/02/19 12:05 BUN 14 mg/dL (7-18) 10/02/19 12:05 Creatinine 1.04 mg/dL (0.70-1.30) 10/02/19 12:05 Glucose 101 mg/dL (74-106) 10/02/19 12:05 COAG Pre-Assessment Diagnosis/Proposed Procedure Planned Operative Procedure(s): EGD WITH PH PROBE Anesthesia History Anesthesia History - registration rep: Anesthesia History - registration rep Hx Hospitalization No 01/06/24 09:57 Any Problems With Anesthesia No 01/06/24 09:57 Cholinesterase deficiency No 01/06/24 09:57 You/Your Family Experience No 01/06/24 09:57 fever (hyperthermia) with Relationship Recent Exposure to Contagious No 01/07/24 08:53 Disease Does patient have nerve No 01/06/24 09:57 stimulator Patient instructed to have device shut off --Does patient have Pacemaker No 01/07/24 08:53 or ICD? When Was Last Pacemaker Check QUESTION #4 FULL TEXT: You/Your Family Experience fever (hyperthermia) with Anesthesia Last Oral Intake Last Oral intake: Last Oral Intake NPO since 00:00 01/07/24 08:53 Meds taken in AM with sips of No 01/07/24 08:53 water? Meds patient instructed to take am of surgery PONV PONV - registration rep: PONV - registration rep Female No 01/06/24 09:57 HX of Motion Sickness No 01/06/24 09:57 HX of N/V After Surgery No 01/06/24 09:57 Non-Smoker No 01/06/24 09:57 Duration of Surgery greater No 01/06/24 09:57 than 60 minutes Number of Risk Factors PONV Score Height & Weight Height & Weight: Anesthesia: Height & Weight Height 6 ft 3 in 01/07/24 08:53 Weight: 90 kg 01/07/24 08:53 Body Mass Index (BMI) 24.7 01/07/24 08:53 Respiratory Assessment Respiratory Assessment - registration rep: Respiratory Tract Infection Hx - registration rep Hx Respiratory Tract Infection No 01/06/24 09:57 STOP Sleep Apnea STOP Sleep Apnea - registration rep: STOP Sleep Apnea - registration rep Hx Hypertension No 01/06/24 09:57 Hx Sleep Apnea No 01/06/24 09:57 CPAP BIPAP Do you snore loudly (louder No 01/06/24 09:57 than talking or can be heard Do you often feel tired/ No 01/06/24 09:57 fatigued/ sleepy during daytime? Has anyone observed you stop No 01/06/24 09:57 breathing during sleep? STOP Results Negative 01/06/24 09:57 QUESTION #5 FULL TEXT : Do you snore loudly (louder than talking or can be heard through closed doors)? 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 Specify any problems Hx of Preganancy in last 3 N/A 01/06/24 09:57 Months Nurse Filling Out Transfusion [id number] 01/06/24 09:57 & Questions: Date: 01/06/24 01/06/24 09:57 Time: 09:59 01/06/24 09:57 Patient unable to answer at this time (ie. confused, unrespo /Reproduction History /Reproductive History - registration rep: /Reproductive Hx- registration rep Hx Now Gestational Age (in weeks): EDC: Hx Hx Para Hx Section SAB Active Medications Active Medications: Current Medications Generic Name Dose Route Start Last Admin Trade Name Freq PRN Reason Stop Dose Admin Lactated Ringer's 1,000 mls @ 15 mls/hr 01/07/24 09:00 IV .Q48H NNEKA PFSH Medical History (Updated 01/07/24 @ 09:[address] Ivan Ch MD) Normal colonoscopy Wears dentures Marijuana use Substance abuse Smoker Change in bowel habit Nausea Abdominal pain GERD (gastroesophageal reflux disease) History of back problems Home Medications ?Medication ?Instructions ?Recorded ?Last Taken ?Type omeprazole 40 mg capsule,delayed 40 mg PO DAILY 12/15/23 01/05/24 History release Allergy/AdvReac Type Severity Reaction Status Date / Time No Known Allergies Allergy Verified 01/07/24 08:52 Family History Father Colon cancer Surgical History (Updated 01/07/24 @ 09:[address] Ivan Ch MD) H/O colonoscopy History of esophagogastroduodenoscopy (EGD) History of tooth extraction History of vasectomy Social History (Updated 12/15/23 @ 14:40 by Annita Rivera LPN) Smoking Status: Current every day smoker tobacco type: cigars and e-cigarettes alcohol intake: current substance use type: marijuana Review of Systems (Anesthesia) ROS Narrative System reviewed and no additional complaints, except as documented.
--- NOTE | 2024-01-07 09:23 | PCM.HP.BLA ---
History and Physical Date of Admission: 01/07/24 Intake Vital Signs 12/09/2112:00 12/14/2413:40 Height 6 ft 3 in 6 ft 3 in Weight: 204 lb BMI 25.4 BP 115/75 Blood Pressure Location Rt brachial Position Sitting Respiration 18 Pulse 64 Pulse Source Monitor Temp 97.6 F L Temp Source Temporal Pulse Oximetry (%) 97 Oxygen Delivery Method room air Intake Visit Reasons: Gastroesophageal reflux disease (GERD) Chief Complaint: GERD Accompanied by: Is patient in pain?: No Allergies hydrocodone bitartrate (From Vicodin) Allergy (Verified 12/15/23 14:43) Hives Medications ?Medication ?Instructions ?Recorded ?Confirmed ?Type omeprazole 40 mg capsule,delayed 40 mg PO DAILY 12/15/23 12/15/23 History release Have you fallen in the past year?: No PFSH Medical History Change in bowel habit Nausea Abdominal pain GERD (gastroesophageal reflux disease) History of back problems Surgical History History of tooth extraction History of vasectomy Family History Father Colon cancer Social History (Updated 12/15/23 @ 14:40 by Annita Rivera LPN) Smoking Status: Current every day smoker alcohol intake: current substance use type: marijuana HPI HPI HPI: Patient is a 38-year-old male here for GERD. He says that he has been on a PPI and he still having symptoms. He denies nausea or vomiting. ROS General General: No weight change, appetite, fatigue, colon cancer, breast cancer or weakness HEENT HEENT: No difficulty swallowing, eye injury, eye surgery, swollen glands or hoarseness Endo Endocrine: No thyroid disease, diabetes mellitus, thyroid cancer, Hair loss, heat intolerance or cold intolerance Skin Skin: No rash or changing moles Musc Musculoskeletal: Yes back problems; No arthritis, rheumatoid arthritis, gout or joint pain Cardio Cardiovascular: No murmur, pacemaker, heart disease, atrial fibrillation, high blood pressure, heart attack, heart stent, palpitations, shortness of breat with exertion or chest pain Psych Psychiatric: No depression, anxiety or hearing voices Resp Respiratory: No shortness of breath, No sleep apnea, No cough, No COPD, No asthma, No emphysema and No wheezing Gastro Gastrointestinal: No abdominal pain, Yes nausea or vomiting, No diarrhea, No constipation, No blood in stool, Yes acid reflux, No hemorrhoids, No ulcers, No gallbladder problem and No black,tarry stools Richy Hematologic: No blood thinners, No blood disorders, No bleeding, No anemia and No blood clots Neuro Neurologic: No numbness, No tingling and No weakness Exam Const General: cooperative Orientation: alert and oriented x3 HENMT Head: normal to inspection Neck Neck: normal visual inspection and full ROM Chest Chest palpation & inspection: normal inspection of the chest Resp Effort & Inspection: normal respiratory effort Auscultation: clear to auscultation bilaterally Cardio Rate: regular rate Rhythm: regular rhythm GI Inspection: non-distended Palpation: soft and nontender Skin General: no rashes or lesions noted Neuro General: patient alert and patient oriented x3 Extrem General: full ROM Psych Appearance: grossly normal Mental Status: mental status grossly normal Assessment and Plan Assessment and Plan (1) Gastroesophageal reflux disease: Plan: The patient has GERD despite PPI. I discussed Radha fundoplication briefly with him. The patient is not interested at this time but he did consent to pH probe with his EGD. I explained endoscopy in detail to the patient. I explained the risks including but not limited to stroke or heart attack with anesthesia, perforation of the GI tract, bleeding, infection. I explained that any of these could necessitate further emergency surgery. The patient understands and all questions were answered sufficiently. The patient wishes to proceed with procedure. Bala Benedict MD Pager: [facility] [address] [place] [address], [address] [place] [address] Office: I have examined the patient and the H&P has been reviewed. There are no clinical changes since date of exam.
--- NOTE | 2024-01-07 09:52 | OP.EGD_ITS ---
Patient Name: Chris Mccann Procedure Date: 01/07/2024 9:34 AM Date of : 1985 Age: 38 Procedure: Upper GI endoscopy Indications: Heartburn, Nausea Providers: Bala Benedict MD Referring MD: Oni Chun Medicines: Propofol per Anesthesia Patient Profile: This is a 38 year old male. Refer to note in patient chart for documentation of history and physical. Complications: No immediate complications. Estimated blood loss: Minimal. Procedure: Pre-Anesthesia Assessment: - Prior to the procedure, a History and Physical was performed, and patient medications and allergies were reviewed. The patient's tolerance of previous anesthesia was also reviewed. The risks and benefits of the procedure and the sedation options and risks were discussed with the patient. All questions were answered, and informed consent was obtained. Prior Anticoagulants: The patient has taken no anticoagulant or antiplatelet agents. After reviewing the risks and benefits, the patient was deemed in satisfactory condition to undergo the procedure. After obtaining informed consent, the endoscope was passed under direct vision. Throughout the procedure, the patient's blood pressure, pulse, and oxygen saturations were monitored continuously. The Endoscope was introduced through the mouth, and advanced to the second part of duodenum. The upper GI endoscopy was accomplished without difficulty. The patient tolerated the procedure well. Scope In: 9:41:33 AM Scope Out: 9:45:52 AM Total Procedure Duration Time 0 hours 4 minutes 19 seconds Findings: The esophagus was normal. The stomach was normal. The examined duodenum was normal. The GAMEZ capsule with delivery system was introduced through the mouth and advanced into the esophagus, such that the GAMEZ pH capsule was positioned 36 cm from the incisors, which was 6 cm proximal to the GE junction. Suction was applied to the well of the GAMEZ pH capsule to suck in the adjacent mucosa of the esophagus using the external vacuum pump set at a minimum vacuum pressure of 550 mmHg for 30 seconds. The GAMEZ pH capsule was then deployed by depressing the plunger on top of the handle to advance the locking pin into the mucosa, thereby attaching the capsule to the esophagus. The plunger was then rotated a quarter turn clockwise to release the capsule from the delivery system. The delivery system was then withdrawn. Endoscopy was utilized for probe placement and diagnostic evaluation. Impression: - Normal esophagus. - Normal stomach. - Normal examined duodenum. - The GAMEZ pH capsule was positioned 36 cm from the incisors, which was 6 cm proximal to the GE junction. - No specimens collected. Recommendation: - Discharge patient to home. - Resume previous diet. - Continue present medications. Procedure Code(s): --- Professional --- 24534, Esophagogastroduodenoscopy, flexible, transoral; diagnostic, including collection of specimen(s) by brushing or washing, when performed (separate procedure) Diagnosis Code(s): --- Professional --- R12, Heartburn R11.0, Nausea CPT copyright 2021 [employer]. All rights reserved. The codes documented in this report are preliminary and upon sas programmer review may be revised to meet current compliance requirements. Bala Benedict MD 01/07/2024 9:52:39 AM This report has been signed electronically. Number of Addenda: 0 Note Initiated On: 01/07/2024 9:34 AM
--- NOTE | 2024-01-07 09:53 | OP.CCLET_ITS ---
01/07/2024 Oni Chun [address] [place] [address] Re : Upper GI endoscopy procedure for Chris Mccann Dear Dr. Chun This procedure was performed on Sunday, January 07, 2024. My impressions and recommendations are as follows: Impressions : - Normal esophagus. - Normal stomach. - Normal examined duodenum. - The GAMEZ pH capsule was positioned 36 cm from the incisors, which was 6 cm proximal to the GE junction. - No specimens collected. Recommendations : - Discharge patient to home. - Resume previous diet. - Continue present medications. My findings are described in the full procedure note, which is enclosed. If I can be of further assistance, please feel free to contact me at Doctor phone number(s): , Work: . Sincerely, Bala Benedict MD 01/07/2024 9:52:39 AM This report has been signed electronically.
--- NOTE | 2024-01-07 09:58 | PCM.POST.ANE ---
Anesthesia: Postop Eval I Current Vital Signs Temperature: 97.9 F Pulse Rate: 65 Blood Pressure: 99/63 Respiratory Rate: 14 Pulse Ox: 94 Oxygen Delivery Method: Room Air Assessment Airway patent: Yes Spontaneous unlabored respirations: Yes Mental status: Asleep nausea: No Vomiting: No Anesthesia Complication: No Fluid Hydration Crystalloid volume administer (ml): 400 Total IV fluid infused: 400 Progress Note Anesthesia document: Postop Eval 1 completed: Yes
--- NOTE | 2024-01-07 15:14 | PCM.POSTANE2 ---
Anesthesia Postop Eval I Sum Postop Eval Completion status Anesthesia document: Postop Eval 1 completed: Yes Anesthesia Postop Eval I Summary Anesthesia Postop Eval I Summary: Anesthesia Postop Eval I: Assessment Summary Airway patent Yes 01/07/24 09:58 [email or web address] Spontaneous unlabored Yes 01/07/24 09:58 [email or web address] respirations Mental status Asleep 01/07/24 09:58 [email or web address] nausea No 01/07/24 09:58 [email or web address] Vomiting No 01/07/24 09:58 [email or web address] Anesthesia Postop Eval I: Fluid Summary Crystalloid volume administer 400 01/07/24 09:58 [email or web address] (ml) Colloids volume administered ( ml) Blood Product volume administered (ml) Total IV fluid infused 400 01/07/24 09:58 [email or web address] Anesthesia Postop Eval I: Summary Notes Anesthesia Complication No 01/07/24 09:58 [email or web address] Anesthesia Complication Comment: Post-operative progress note Anesthesia: Postop Eval II Evaluation Mental status: Awake and Calm Pain Level: 0 nausea: No Vomiting: No Complications Anesthesia Complication: No
== END 2024-01-07 10:28 | disposition home or self-care (01) ==
LOC: EN 08:28 → AC 08:29
PROVIDERS: PCP Family Medicine; Referring Provider Family Medicine; Visit Provider Surgery
PROC: (CPT 43235; principal; 2024-01-07 09:25)
DX: K21.9 Gastro-esophageal reflux disease without esophagitis (principal); F17.290 Nicotine dependence, other tobacco product, uncomplicated; Z79.899 Other long term (current) drug therapy; Z80.0 Family history of malignant neoplasm of digestive organs
CPT/HCPCS: 43235; J7120; J2405